=== PATIENT | male | born 1965 | race African-American/Black ===

== ENCOUNTER 2019-11-08 09:34 | Outpatient (CLI) | payer OTHER, SELFPAY ==
[2019-11-08 10:20] LABS: Blood Urea Nitrogen 14 mg/dL (9-20); Calcium 9.5 mg/dL (8.4-10.2); Carbon Dioxide 26 mmol/L (22-30); Chloride 102 mmol/L (98-107); Estimated Glomerular Filt Rate > 60; Glucose 101 mg/dL (75-110); Magnesium 1.8 mg/dL (1.6-2.3); Potassium 4.1 mmol/L (3.4-5.0); Sodium 139 mmol/L (137-145)
== END 2019-11-08 09:35 | disposition home or self-care (01) ==
LOC: ANHLAB 09:37
PROVIDERS: Visit Provider Nurse Practitioner Adult Health
DX: I73.9 Peripheral vascular disease, unspecified (principal); E87.6 Hypokalemia; M79.606 Pain in leg, unspecified
CPT/HCPCS: 36415; 80048; 83735

== ENCOUNTER 2019-11-11 18:22 | Emergency (ER) | payer OTHER, SELFPAY ==
--- NOTE | ~2019-11-11 | CT_ITS ---
EXAMINATION: CTA brain DATE: 11/11/2019 21:25 INDICATION: Left-sided headache. TECHNIQUE: Computed tomographic angiography (CTA) of the head was performed without and with 100 mL O mnipaque-350 intravenous contrast. Volume-rendered and maximum intensity projection 3D reconstruction s of the intracranial arteries were created by the technologist on a separate workstation. Automated exposure control and iterative reconstruction technique were employed. The dose-length product was 1 091 mGy-cm. COMPARISON: None. FINDINGS: No acute intracranial hemorrhage, acute infarction or abnormal extra axial fluid collection. Ventricl es are normal and symmetric. No mass/mass effect. Mild mucosal thickening the bilateral ethmoid sinus es. The orbits and mastoid air cells are normal. Mild atherosclerotic calcifications at the bilateral carotid siphons without hemodynamically signific ant stenosis. There is no hemodynamically significant stenosis in the vertebral or basilar arteries. Vertebral arteries are codominant. There are no aneurysms, thrombosis or dissection identified. Both A1 and P1 segments are patent. Cerebral arterial arborization appears symmetric. IMPRESSION: 1. No acute intracranial process with unremarkable cerebral angiogram. Reviewed, dictated and finalized at location A. [employer]
[2019-11-11 18:23] VITALS: BP 122/74; PULSE 64; RESP 19; TEMP 36.3; O2SAT 99
--- NOTE | 2019-11-11 18:31 | ED.HA ---
HPI - Headache General Chief Complaint: Headache Stated Complaint: BEEN HAVING BAD MIGRAINES Time Seen by Provider: 11/11/19 18:29 Source: patient and RN notes reviewed Mode of arrival: other Limitations: no limitations History of Present Illness HPI Narrative: Pt is a 54 y/o male who presents to the ED with c/o an intermittent left temporal headache that began two weeks ago. Pt's spouse notes that Dr. Chery referred to the ED for further evaluation if his HECTOR persisted. Pt notes that his sx will last for 8 minutes and then he notes that he feels as if something is draining from his ear. Pt states that his last episode was an hour ago and he has had 7-8 episodes today. Pt denies any aggravating factors. Pt had a CT scan of his head on (11/09/19) at [place]. Pt denies nasal drainage, nasal congestion, visual changes, hearing changes, fever, and otalgia. Pt is taking ASA daily. MD elicited complaint: headache Pertinent past history: hypertension Onset (ago): week(s) (2) Location: left and temporal Quality & Timing: intermittent Exacerbating factors: none Associated symptoms: none Related Data Allergies Allergy/AdvReac Type Severity Reaction Status Date / Time No Known Allergies Allergy Verified 11/11/19 19:33 Review of Systems Review of Systems: All systems reviewed & are unremarkable except as noted in HPI and below Constitutional: Constitutional: Denies fever(s) Eyes: Eyes: Denies change in vision ENT: Denies otalgia, Denies nasal congestion, Denies nasal discharge and Denies other (hearing changes) Neurologic: Reports headache(s) (left temporal) [facility] Past Medical History Medical History Hypercholesterolemia Hypertension No significant past medical history Peripheral vascular disease Tobacco use Surgical History Surgical History (Updated 11/11/19 @ 18:56 by Sadaf Whitaker) No significant past surgical history Stented coronary artery Social History Social History Smoking packs per day: 0.5 Smoking cigarettes per day: 10.0 Years smoked: 10 Smoking pack-years: 5.00 Smoking status: Current every day smoker Tobacco type: cigarettes Alcohol intake: never Substance use: never Gender identity (if verbalized by the patient): Male Spiritual care concerns: No Exam Const: General: healthy appearing, no acute distress and well developed Nutritional Appearance: well nourished Orientation/consciousness: patient oriented x3 (alert) and Other orientation findings (Alert) Limitations: no limitations HENMT: Head: no temporal artery tenderness Ears: other (cerumen in ears) General nose exam: No nasal discharge present and no epistaxis Face and sinus: sinuses nontender Mouth: Yes lip normal, Yes tongue normal and Yes moist mucous membranes Throat: other (No exudate, no erythema) Eyes: Conjunctivae: conjunctivae normal Sclera: sclerae normal EOM: EOMs intact bilaterally Neck: Neck: full ROM, no lymphadenopathy and supple Thyroid: thyroid normal Resp: Effort & Inspection: normal respiratory effort Auscultation: clear to auscultation bilaterally, no rales, no rhonchi, no wheezes and other (breath sounds equal) Cardio: Rate: regular rate Rhythm: regular rhythm Heart sounds: no gallops and no murmurs Skin: General skin exam: normal color and no rashes or lesions noted Neuro: General: patient oriented x3 (alert), moves all extremities and no focal motor deficits Cranial nerves: Yes facial symmetry Speech: normal speech Motor exam (neuro): Motor abnormalities not present Extrem: General: normal to inspection, full ROM and no pedal edema Psych: Affect: normal affect Course Consultations Consultation #1: Discussed case with Dr. Chery to confirm normal outpatient imaging. d/w pt, w/u reassuring, would consider tylenol regularly and possibly neuroi referral if persistently bothersome Date: 11/11/19 Time: 20:29 Vital Signs
[2019-11-11 20:28] LABS: Erythrocyte Sedimentation Rate 25 mm/hr (0-20)
[2019-11-11 20:30] LABS: CRP 0.9 mg/dL (<1.0)
[2019-11-11 21:24] LABS: Blood Urea Nitrogen 15 mg/dL (8-26); Estimated Glomerular Filt Rate > 60
[2019-11-11 22:26] VITALS: BP 132/77; PULSE 72; RESP 18; O2SAT 99
== END 2019-11-11 22:27 | disposition home or self-care (01) ==
PROVIDERS: Emergency Provider Emergency Medicine
DX: E78.00 Pure hypercholesterolemia, unspecified (principal); I10 Essential (primary) hypertension; I73.9 Peripheral vascular disease, unspecified; F17.210 Nicotine dependence, cigarettes, uncomplicated
CPT/HCPCS: 36415; 70496; 85652; 86140; 99284; Q9967

== ENCOUNTER 2019-11-24 07:56 | Outpatient (CLI) | payer OTHER, SELFPAY ==
--- NOTE | ~2019-11-24 | US_ITS ---
EXAMINATION: US arterial ankle brachial ind DATE: 11/24/2019 09:16 INDICATION: Claudication TECHNIQUE: Segmental pressures and plethysmographic and Doppler waveforms of the brachial and lower e xtremity arteries were obtained. COMPARISON: None. FINDINGS: Right and left brachial artery pressures of 113 mm Hg and 126 mm Hg, respectively, are concordant (no rmal difference <= 30 mmHg). The right ankle-brachial index (MAGDA) is 0.48 (normal >= 0.9-1.0). The right great toe-brachial index (TBI) is 0.53 (normal >= 0.65). Arterial Doppler waveforms are biphasic. The left MAGDA is 0.59. The left TBI is 0.45. Arterial Doppler waveforms are biphasic. IMPRESSION: Depressed bilateral MAGDA of 0.48 on the right, 0.59 on the left Right and left TBI measurements of 0.53 and 0.45, respectively, both below normal range Reviewed, dictated and finalized at Location A. Reviewed, dictated and finalized at location B. HANGER IMPRESSION: Depressed bilateral MAGDA of 0.48 on the right, 0.59 on the left Right and left TBI measurements of 0.53 and 0.45, respectively, both below norm al range
== END 2019-11-24 07:57 | disposition home or self-care (01) ==
LOC: ANHIMG 07:58
PROVIDERS: PCP Internal Medicine; Visit Provider Internal Medicine Cardiovascular Disease
DX: I73.9 Peripheral vascular disease, unspecified (principal); R94.39 Abnormal result of other cardiovascular function study
CPT/HCPCS: 93922

== ENCOUNTER 2020-04-12 02:18 | Observation (INO) | payer OTHER, SELFPAY ==
[2020-04-12] VITALS (17 sets, daily range): BP systolic 94–133; BP diastolic 55–80; PULSE 60–77; RESP 12–20; TEMP 36.1–36.7; O2SAT 94–100; BMI 33.0
--- NOTE | 2020-04-12 | EST_ITS ---
Patient Info Name: Subhash Browning Age: 55 years : 1965 Gender: Male Ht: 67 in Wt: 210 lbs BSA: 2.16 m2 Exam Date: 04/12/2020 1:21 PM Exam Location: [facility] [place] [facility] Patient Status: Outpatient Admit Date: 04/12/2020 Staff Ordering Physician: Gilberto Oliveira MD Attending Provider: Mere Ritter PA-C Exercise Technologist: Malka Martin RDCS Nurse: Marietta Epstein ANP, ACNP-BC Exam Type: CA stress harper w NM Study Info Indications R07.89 - Other chest pain A regadenoson stress test was performed. Summary 1. Normal sinus rhythm - normal ECG. 2. No abnormal ST/T wave changes with exercise. 3. Myocardial perfusion imaging exam to be dictated by Radiology. 4. Clinically and electrocardiographically negative Lexiscan stress test. Protocol: Lexiscan Stress ECG Details Stage: REST Duration (min): 19 min : 28 sec HR (bpm): 70 SBP (mmHg): 100 DBP (mmHg): 70 Stage: REST Duration (min): 20 min : 29 sec HR (bpm): 67 SBP (mmHg): 100 DBP (mmHg): 70 Stage: STAGE 1 Duration (min): 1 min : 0 sec HR (bpm): 94 SBP (mmHg): 115 DBP (mmHg): 57 Stage: RECOVERY Duration (min): 1 min : 0 sec HR (bpm): 95 SBP (mmHg): 105 DBP (mmHg): 55 Stage: RECOVERY Duration (min): 2 min : 0 sec HR (bpm): 93 SBP (mmHg): 105 DBP (mmHg): 55 Stage: RECOVERY Duration (min): 3 min : 0 sec HR (bpm): 91 SBP (mmHg): 105 DBP (mmHg): 53 Stage: RECOVERY Duration (min): 3 min : 14 sec HR (bpm): 90 SBP (mmHg): 105 DBP (mmHg): 53 Rest HR: 67 bpm Peak HR: 99 bpm Rest Sys BP: 100 mmHg Peak Sys BP: 115 mmHg Max Pred HR: 167 bpm % Max Pred HR: 59 % Target HR: 142 bpm Max RPP: 11,385 bpm*mmHg BP Response: Normal blood pressure response Termination Reason: Completed protocol Cardiac Symptoms: None Total Time: 1 min : 0 sec Rest Benjamin BP: 70 mmHg Peak Benjamin BP: 57 mmHg Total Dose: 0.4 mg Resting ECG Normal sinus rhythm - normal ECG. Stress ECG No abnormal ST/T wave changes with exercise. Arrhythmias None. Report Signatures
--- NOTE | ~2020-04-12 | NM_ITS ---
EXAMINATION: NM harper stress w perfusion DATE: 04/12/2020 14:38 INDICATION: Chest pain. TECHNIQUE: Rest images were obtained following intravenous administration of 8.4 mCi Tc99m tetrofosmi n (Myoview). The patient was infused intravenously with Lexiscan (regadenoson). Then, 28.3 mCi Tc99m tetrofosmin (Myoview) was administered intravenously, and stress images were obtained. Data was recon structed into short axis and horizontal and vertical long axis SPECT images. Gated SPECT images were also obtained. COMPARISON: None. FINDINGS: There is no definite reversible or fixed perfusion abnormality to suggest ischemia or infar ction. There is no segmental wall motion abnormality. Left ventricular ejection fraction measures > 70%. IMPRESSION: 1. No definite ischemia or infarct. 2. Normal left ventricular ejection fraction measuring >70%. Reviewed, dictated and finalized at location A.
--- NOTE | ~2020-04-12 | CT_ITS ---
EXAMINATION: CT brain wo con INDICATION: Dizziness COMPARISON: 11/11/2019 TECHNIQUE: Standard unenhanced head CT. The dose-length product (DLP) was 605.33 mGy-cm. The mA was a djusted according to patient size. Iterative reconstruction technique was employed. FINDINGS: There is no intracranial hemorrhage, acute infarction, or abnormal mass lesion. The ventric les are normal. There is no abnormal mass effect or midline shift. The rodrigues-white matter differentiat ion is normal. The basal cisterns are patent. The orbits are normal. There is mild mucosal thickening of the paranasal sinuses. IMPRESSION: 1. No acute intracranial abnormality. Reviewed, dictated and finalized at location A.
--- NOTE | ~2020-04-12 | XR_ITS ---
EXAMINATION: XR chest 1V portable DATE: 04/12/2020 03:16 INDICATION: Chest pain TECHNIQUE: frontal view of the chest was obtained. COMPARISON: Chest radiograph dated 10/21/2019 FINDINGS: The lungs remain clear with no focal airspace opacities, pulmonary edema, pleural effusion or pneumot horax. The cardiomediastinal silhouette is normal. Mild thoracolumbar levocurvature. IMPRESSION: 1. No acute cardiopulmonary disease. Reviewed, dictated and finalized at location A.
--- NOTE | 2020-04-12 02:44 | ECG_ITS ---
Measurements Intervals [place] Rate: 66 P: 52 [place]: 152 QRS: 33 QRSD: 93 T: 29 QT: 377 QTc: 395 Interpretive Statements SINUS RHYTHM ST ELEVATION IN DIFFUSE LEADS, PROBABLY EARLY REPOLARIZATION BORDERLINE ECG Electronically Signed On 04-12-2020 7:25:05 CDT by He Beltran D.O.
[2020-04-12 02:57] LABS: Basophils Percent Auto 0.4 % (0.2-1.2); Eosinophils Absolute Auto 0.4 K/mm3 (0-0.3); Hematocrit 42.9 % (42.0-52.0); Hemoglobin 14.7 g/dL (14.0-18.0); Immature Granulocyte Absolute 0.02 K/mm3 (0.00-0.031); Immature Granulocyte Percent A 0.3 % (0-0.5); Lymphocytes Absolute Auto 4.12 K/mm3 (0.9-3.2); Lymphocytes Percent Auto 52.7 % (18.3-44.2); Mean Corpuscular HGB Conc 34.3 g/dl (32-36); Mean Corpuscular Hemoglobin 31.6 pg (26-34); Mean Corpuscular Volume 92.3 fl (80-100); Mean Platelet Volume 9.6 fl (7.4-10.4); Monocytes Absolute Auto 0.8 K/mm3 (0.1-0.6); Neutrophils Absolute Auto 2.5 K/mm3 (1.3-6.7); Neutrophils Percent Auto 31.6 % (45.5-73.1); Platelet Count Result 274 k/mm3 (150-375); Red Blood Count 4.65 M/mm3 (4.6-6.20); Red Cell Distribution Width 14.1 % (11.5-14.5); White Blood Count 7.8 K/mm3 (4.5-10.0)
--- NOTE | 2020-04-12 02:59 | ED.GENADULT ---
HPI - General Adult General Chief complaint: Dizziness Stated complaint: dizzy/weak Time Seen by Provider: 04/12/20 02:28 Source: RN notes reviewed History of Present Illness HPI narrative: Patient presents emergency department from home for chest pain. Patient states symptoms began 3 days ago. States has been having pain in his left chest does not radiate. Is been associated with nausea and dizziness. Patient states that the left chest pain is intermittent denies any current pain. He denies any fevers or chills shortness of breath abdominal pain or any other symptoms. Patient has a history of PR with stent placement by Dr. De Leon in October 2019. States he has been taking all of his medications as prescribed Related Data Allergies Allergy/AdvReac Type Severity Reaction Status Date / Time No Known Allergies Allergy Verified 04/12/20 02:42 Review of Systems Review of Systems: Narrative: Gen.: Denies fevers or chills Eyes: Denies eye pain or visual change ENT: Denies congestion Respiratory: Denies shortness of breath or cough CV: See HPI GI: Denies abdominal pain emesis or diarrhea. Reports nausea denies burning, urgency, frequency or hematuria Musculoskeletal: Denies back pain or muscle pain Neuro: Denies numbness, tingling, weakness or focal weakness reports dizziness Skin: Denies rash Except as documented, all other systems reviewed and negative [facility] Past Medical History Medical History Hypercholesterolemia Hypertension No significant past medical history Peripheral vascular disease Tobacco use Surgical History Surgical History (Updated 11/11/19 @ 18:56 by Sadaf Whitaker) No significant past surgical history Stented coronary artery Social History Social History Smoking packs per day: 0.5 Smoking cigarettes per day: 10.0 Years smoked: 10 Smoking pack-years: 5.00 Smoking status: Current every day smoker Tobacco type: cigarettes Alcohol intake: never Substance use: never Gender identity (if verbalized by the patient): Male Spiritual care concerns: No Exam Narrative: Exam Narrative: APPEARANCE: No acute distress, nontoxic, resting in bed EYES: EOMI HEENT: Normocephalic, atraumatic, OMM RESPIRATORY: No respiratory distress Clear to auscultation bilaterally with no rhonchi wheezing or rales. CARDIOVASCULAR: Regular rate and rhythm without murmurs rubs or gallops. ABDOMINAL: Soft, nontender, nondistended, no rebound or guarding MUSCULOSKELETAl: Moves all extremities. No clubbing, cyanosis or edema. NEURO: Awake and alert. Following commands, speech normal, no focal deficits SKIN:: Warm, dry. No rashes lesions or abrasions PSYCHIATRIC: Normal affect/mood, Course Course Emergency Course: Following initial EKG I called and discussed with Dr. Michaels quality control representative. EKGs were sent to him for evaluation. We did review the patient's EKGs with several changes in V2 and V3 with no reciprocal changes. At this time he does not believe that this is an acute STEMI after review of the EKGs. He recommends medical management with work-up and if no contraindications starting the patient on a heparin drip as well as giving the patient his a.m. Brilinta and aspirin [address] Cheung presentation work-up reviewed with admission at this time Discussed with patient and family results of workup and diagnosis. Discussed need for admission. Patient and family understand and agree to current treatment plan. Patient denies any chest pain at this time Vital Signs Vital signs: Vital Signs Temperature 97.0 F L 04/12/20 02:31 Pulse Rate 75 04/12/20 02:31 Respiratory Rate 18 04/12/20 02:31 Blood Pressure 113/80 04/12/20 02:31 Pulse Oximetry 100 04/12/20 02:31 Temperature 97.0 F L 04/12/20 02:31 Pulse Rate 75 04/12/20 02:31 Respiratory Rate 18 04/12/20 02:31 Blood Pressure 113/80 04/12/20 02:31 Pulse Oximetry 100
[2020-04-12] MEDS: ASPIRIN 81 MG CHEWABLE TABLET PO (03:04)
[2020-04-12 03:08] LABS: Blood Urea Nitrogen 14 mg/dL (9-20); Calcium 8.9 mg/dL (8.4-10.2); Carbon Dioxide 23 mmol/L (22-30); Chloride 105 mmol/L (98-107); Estimated CRCL calculation 102 ml/min; Estimated Glomerular Filt Rate > 60; Glucose 111 mg/dL (75-110); Potassium 3.7 mmol/L (3.4-5.0); Sodium 136 mmol/L (137-145)
[2020-04-12 03:09] LABS: Prothrombin Time 12.9 Seconds (11.1-14.7)
[2020-04-12 03:13] LABS: Partial Thromboplastin Time 22.4 SECONDS (22.3-36.8)
[2020-04-12 03:20] LABS: Troponin I < 0.012 ng/mL (0.000-0.034)
[2020-04-12] MEDS: TICAGRELOR 90 MG TABLET PO (05:11)
[2020-04-12] MEDS: HEPARIN SODIUM 5,000 UNITS/ML VIAL 4000 UNITS IV PUSH (05:31)
--- NOTE | 2020-04-12 05:53 | ADMGEN ---
This patient, Subhash Browning, was admitted to IMU Room 210-01. Patient/family oriented to hospital policies and general routines including ID bracelet, bed and alarms, visiting hours, pain management, procedures, bathroom and other care routines, personal items, smoking policy, room service/diet, and visiting hours. Valuables list has been completed. Information on how to activate the Rapid Response Team has been discussed. Patient/Family are encouraged to report perceived risks to care and to ask questions if they do not understand what they are told or what they should do.
[2020-04-12] MEDS: HEPARIN SOD/D5W 100 UNITS/ML 25,000 UNITS/250 ML BAG 9 UNITS IV CONT (06:25)
[2020-04-12 06:47] LABS: Troponin I < 0.012 ng/mL (0.000-0.034)
--- NOTE | 2020-04-12 09:06 | PM.CNCAR ---
Assessment and Plan Additional Plan 55-year-old patient with known history of coronary artery disease percutaneous stenting of the RCA in the setting of acute inferior wall infarction in October of this year. Clinically doing well since then. He now has a 5-6 day history of intermittent nonexertional mild chest pain that his rates concerned. So far there appears to be no evidence of acute coronary syndrome by ECG and biomarkers. He clearly has physical exam evidence of significant peripheral vascular disease and had significant difficulty in the catheterization lab in October conducting his cardiac procedure from the femoral artery. At this point I am going to recommend an ischemia evaluation in the form of a Lexiscan nuclear stress test since his symptoms are atypical assuming that his 3rd troponin level comes back negative. That will be done later this morning. If it is negative he can be dismissed for scheduled follow-up in the office with Dr. De Leon . Gilberto Oliveira MD [facility] History of Present Illness History of Present Illness Consult date/time: 04/12/20 09:06 Consult reason: chest pain Reason For Visit: chest pain, dizziness, normal EKG Narrative: This is a 55-year-old gentleman I am seeing this morning at the request of the hospitalist after he was admitted in the middle of the night after being seen in the emergency room. The patient has been experiencing intermittent episodes of chest pain since Wednesday evening of this week, about 5 days ago. He describes a it very mild dull low substernal to epigastric pain that happens off and on in an unpredictable fashion. He states the symptom is not related to physical activity meals body position or anything else that he can identify. It has no associated shortness of breath diaphoresis or nausea. He came to the emergency room last evening apparently because the symptoms have been continuing and of recent concern on his part because he is known to have coronary artery disease. The patient was found to have coronary disease in October this year when he presented to this hospital with an acute inferior ST-elevation [place]. He was brought to the [facility] emerg[facility] by Dr. De Leon where he was found to have no significant left coronary disease he had subtotal occlusion of the mid RCA which was treated percutaneously with good success he received a 3.25 x 23 mm drug-eluting stent with a good anatomical result and good FRANCHESCA 3 flow of the vessel the procedure was complicated by the fact that he had significant peripheral vascular disease making arterial access from the right femoral artery difficult and challenging. [place] wires and long sheaths had to be used to perform the angiogram. He does have a history of pretty typical symptoms of intermittent claudication for several years which have been stable and have not worsened since his coronary event as described above. 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 Patient's ECG did not show any evidence of acute coronary injury. He had some precordial ST segment elevation or J-point elevation with no reciprocal changes. His troponin levels are being sample of course the 1st 2 levels are normal. The 3rd sample is pending at the time of this dictation. Review of Systems Constitutional: Constitutional: Reports no additional constitutional complaints Eyes: Eyes: Reports no additional eye complaints ENT: Reports system reviewed and no additional complaints, except as documented Cardiovascular: Cardiovascular: Reports as per HPI Respiratory: Respiratory: Reports no additional respiratory complaints Gastrointestinal: Gastrointestinal: Reports no additional gastrointestinal complaints Musculoskeletal: Musculoskeletal: Reports no additional musculoskeletal complaints Neurologic: Reports system reviewed and no additional complaints, except
[2020-04-12 09:11] LABS: Troponin I < 0.012 ng/mL (0.000-0.034)
[2020-04-12] MEDS: ONDANSETRON INJ 4 MG/2 ML VIAL (12:16)
[2020-04-12] MEDS: MECLIZINE HCL 12.5 MG TABLET PO (14:37)
--- NOTE | 2020-04-12 15:11 | PM.SD ---
Same Day Admit/Disch: HPI History of Present Illness Chief complaint: chest pain, dizziness, normal EKG Narrative: Subhash Browning is a 55 year old male with a history of coronary artery disease status post PCI October 2019, who presented to the emergency room with complaints of dizziness and chest pain. The patient states he has been having chest pain that has been intermittent for 1 week. He states it feels like a soreness and tightness to the left side of his chest. He states it is non radiating and is not worse with taking a deep breath or pressing on the area. He states his chest pain has occurred while he is up walking around doing things and then he has to stop and sit down to relax before goes away. He states his chest pain last up to 45 minutes. He denies any shortness of breath associated with his chest pain but he does report nausea and diaphoresis being associated with it. He also reports intermittent dizziness that began 5 days ago. He states it is worse whenever he turns his head, stands, and sometimes it just comes on randomly. He has associated nausea, weakness with the dizziness. He has had a go home from work a few times secondary to his dizziness. He describes his dizziness as feeling off balance, and room spinning. He denies any feelings that he is going to pass out and denies any syncopal episodes. He denies blurry vision, double vision, headaches, cough, fever, chills, vomiting, abdominal pain, diarrhea, constipation, leg swelling, calf pain, urinary symptoms, or any other symptoms at this time. Initial vitals showed temperature of 97?, blood pressure 113/80, heart rate 75, respiratory rate 18, oxygen saturation 100% on room air. Initial labs showed normal CBC with differential, normal coag panel, sodium of 136, negative troponin x3. CT brain for his dizziness showed no acute intracranial abnormality. Chest x-ray showed no acute cardiopulmonary findings. To the emergency department the believed that he had some ST elevation to V2 and V3 and he called Dr. Michaels registered diet technician who evaluated the EKG. They decided to start the patient on heparin drip IV at that time and admitted into the hospital for further cardiac workup. [facility] Past Medical History Medical History Coronary artery disease Hypercholesterolemia Hypertension Peripheral vascular disease Tobacco use Surgical History Surgical History Stented coronary artery Family History Family History Father Hypertension Family history of cardiovascular disease Social History Social History Years smoked: 36 Smoking status: Former smoker Tobacco type: cigarettes Alcohol intake: current Alcohol use details: He drinks 1 beer daily and socially drinks occasionally Substance use: never Substance use type: does not use Living arrangements: with family Occupation/Education: occupation 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 Appears comfortable. In no acute distress. Skin: No jaundice or cyanosis. Good skin turgor. Neck: Full range of motion. Supple. Respiratory: Lungs are clear to auscultation bilaterally. No wheezing, rales or rhonch
== END 2020-04-12 16:15 | disposition home or self-care (01) ==
LOC: ANHED 05:12 → ANHIMU 05:18
PROVIDERS: Admitting Provider Internal Medicine; Emergency Provider Emergency Medicine; PCP Internal Medicine; Visit Provider Family Medicine
DX: R07.9 Chest pain, unspecified (principal); I25.2 Old myocardial infarction; I73.9 Peripheral vascular disease, unspecified; E78.00 Pure hypercholesterolemia, unspecified; F17.210 Nicotine dependence, cigarettes, uncomplicated; I10 Essential (primary) hypertension; I25.10 Atherosclerotic heart disease of native coronary artery without angina pectoris; R94.31 Abnormal electrocardiogram [ECG] [EKG]; R42 Dizziness and giddiness; Z95.5 Presence of coronary angioplasty implant and graft
CPT/HCPCS: 36415; 70450; 71045; 78452; 80048; 84484; 85025; 85610; 85730; 93005; 93017; 99285; A9270; A9502; G0378; J1644; J2405; J2785

== ENCOUNTER 2020-04-16 17:13 | Observation (INO) | payer OTHER, SELFPAY ==
--- NOTE | ~2020-04-16 | XR_ITS ---
EXAMINATION: XR chest 2V DATE: 04/16/2020 18:00 INDICATION: Left chest pain. Dizziness. TECHNIQUE: Frontal and lateral views of the chest were obtained. COMPARISON: Chest single view 04/12/2020 FINDINGS: There is mild atelectasis at left lung base. No pleural effusion or pneumothorax. The heart size is normal. IMPRESSION: 1. Mild atelectasis at left lung base. Reviewed, dictated and finalized at location A.
[2020-04-16 17:15] VITALS: BP 107/64; PULSE 78; RESP 19; TEMP 36.6; O2SAT 99
--- NOTE | 2020-04-16 17:22 | ECG_ITS ---
Measurements Intervals [place] Rate: 79 P: 51 MD: 144 QRS: 13 QRSD: 88 T: 27 QT: 341 QTc: 391 Interpretive Statements SINUS RHYTHM ST ELEVATION IN ANTERIOR LEADS- PROBABLY EARLY REPOLARIZATION BASELINE ARTIFACT- I, II, AVR, V1 BORDERLINE ECG Electronically Signed On 04-16-2020 20:52:38 CDT by He Beltran D.O.
[2020-04-16 17:33] LABS: Basophils Percent Auto 0.3 % (0.2-1.2); Eosinophils Absolute Auto 0.3 K/mm3 (0-0.3); Eosinophils Percent Auto 4.6 % (0-4.4); Hemoglobin 14.3 g/dL (14.0-18.0); Immature Granulocyte Absolute 0.02 K/mm3 (0.00-0.031); Immature Granulocyte Percent A 0.3 % (0-0.5); Lymphocytes Percent Auto 35.8 % (18.3-44.2); Mean Corpuscular Hemoglobin 31.8 pg (26-34); Mean Corpuscular Volume 93.5 fl (80-100); Mean Platelet Volume 9.6 fl (7.4-10.4); Monocytes Absolute Auto 0.5 K/mm3 (0.1-0.6); Monocytes Percent Auto 8.9 % (2.6-8.5); Neutrophils Absolute Auto 2.9 K/mm3 (1.3-6.7); Neutrophils Percent Auto 50.1 % (45.5-73.1); Platelet Count Result 285 k/mm3 (150-375); Red Blood Count 4.49 M/mm3 (4.6-6.20); Red Cell Distribution Width 14.1 % (11.5-14.5); White Blood Count 5.9 K/mm3 (4.5-10.0)
[2020-04-16 17:42] LABS: Prothrombin Time 12.7 Seconds (11.1-14.7)
[2020-04-16 17:43] LABS: Partial Thromboplastin Time 27.6 SECONDS (22.3-36.8)
[2020-04-16 18:22] LABS: Blood Urea Nitrogen 9 mg/dL (9-20); Calcium 8.9 mg/dL (8.4-10.2); Carbon Dioxide 27 mmol/L (22-30); Chloride 103 mmol/L (98-107); Estimated CRCL calculation 92 ml/min; Estimated Glomerular Filt Rate > 60; Glucose 96 mg/dL (75-110); Potassium 3.8 mmol/L (3.4-5.0); Sodium 137 mmol/L (137-145)
[2020-04-16 18:34] LABS: Troponin I < 0.012 ng/mL (0.000-0.034)
--- NOTE | 2020-04-16 19:33 | ED.CHESTPAIN ---
HPI - Chest Pain General Chief Complaint: Chest Pain Stated Complaint: CP Time Seen by Provider: 04/16/20 17:22 History of Present Illness HPI narrative: Patient is 55 years old -[place] male, history of [place] 6 months ago, 1 coronary stents, diabetes, hypertension, hyperlipidemia, positive family history of coronary disease presents with left chest pain started while working at the [employer], lasted for minutes, resolved after taking nitroglycerin sublingual, and receiving nitroglycerin spray in the ambulance. Currently patient is pain-free. Patient believes that he was overheated while working at the [employer]. Patient denies any shortness of breath or radiation of pain. Pain is sharp Related Data Allergies Allergy/AdvReac Type Severity Reaction Status Date / Time No Known Allergies Allergy Verified 04/16/20 17:23 Review of Systems Review of Systems: Narrative: CONSTITUTIONAL: Denies fever, chills, or sweats. EYES: Denies visual changes, redness, or discharge. ENT: Denies rhinorrhea, congestion, sore throat, or otalgia. CARDIOVASCULAR: Denies chest pain, palpitations, or edema. RESPIRATORY: Denies cough or dyspnea. GASTROINTESTINAL: Denies abdominal pain, nausea, vomiting, or diarrhea. GENITOURINARY: Denies dysuria or hematuria. SKIN: Denies rash or itching. MUSCULOSKELETAL: Denies back pain, joint pain, or myalgia. NEUROLOGIC: Denies headache, numbness, or weakness. PSYCHIATRIC: Denies anxiety or depression. 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 Oliveira Date: 04/16/20 Time: 20:59 Vital Signs Vital signs: Vital Signs Temperature 36.6 C 04/16/20 17:15 Pulse Rate 78 04/16/20 17:15 Respiratory Rate 19 04/16/20 17:15 Blood Pressure 107/64 04/16/20 17:15 Pulse Oximetry 99 04/16/20 17:15 Temperature 36.8 C 04/16/20 19:48 Pulse Rate 95 04/16/20 19:48 Respiratory Rate 16 04/16/20 19:48 Blood Pressure 95/70 L 04/16/20 19:48 Pulse Oximetry 100 04/16/20 19:48 MDM - Chest Pain MDM Narrative Medical decision making narrative: Patient was hospitalized on April 12 and got discharged on the for similar symptoms. He is back again with the same symptoms. Patient re
[2020-04-16 19:48] VITALS: BP 95/70; PULSE 95; RESP 16; TEMP 36.8; O2SAT 100
[2020-04-16] MEDS: ENOXAPARIN 100 MG/ML SYRINGE SUB-Q (21:13)
[2020-04-16 21:17] LABS: Troponin I < 0.012 ng/mL (0.000-0.034)
[2020-04-16 21:53] VITALS: BP 104/62; PULSE 70; RESP 16; TEMP 36.6; O2SAT 100
[2020-04-16 22:00] VITALS: PULSE 87
[2020-04-16 22:18] VITALS: BMI 32.6
--- NOTE | 2020-04-16 22:26 | ADMGEN ---
This patient, Subhash Browning, was admitted to IMU Room 201-01. Patient/family oriented to hospital policies and general routines including ID bracelet, bed and alarms, visiting hours, pain management, procedures, bathroom and other care routines, personal items, smoking policy, room service/diet, and visiting hours. Valuables list has been completed. Information on how to activate the Rapid Response Team has been discussed. Patient/Family are encouraged to report perceived risks to care and to ask questions if they do not understand what they are told or what they should do. 04/14/2020 2019
[2020-04-16 22:28] VITALS: BP 121/93; PULSE 80; RESP 18; TEMP 35.8; O2SAT 99
[2020-04-16 23:21] VITALS: BP 123/71; PULSE 81; RESP 20; TEMP 36.7; O2SAT 100
[2020-04-16 23:45] LABS: Troponin I < 0.012 ng/mL (0.000-0.034)
[2020-04-17] VITALS: PULSE 88
[2020-04-17 02:00] VITALS: PULSE 71
[2020-04-17 04:00] VITALS: BP 101/49; PULSE 71; PULSE 72; RESP 18; TEMP 37.2; O2SAT 98
[2020-04-17 06:00] VITALS: PULSE 72
[2020-04-17 08:00] VITALS: BP 106/56; PULSE 67; PULSE 77; RESP 18; TEMP 36.8; O2SAT 99
[2020-04-17] MEDS: ASPIRIN 81 MG ENTERIC TABLET PO (08:29)
[2020-04-17] MEDS: lisinopriL 10 MG TABLET PO (08:29)
[2020-04-17] MEDS: TICAGRELOR 90 MG TABLET PO (08:30)
[2020-04-17 10:00] VITALS: PULSE 68
--- NOTE | 2020-04-17 10:05 | PM.CNCAR ---
Assessment and Plan Additional Plan 55-year-old gentleman with known coronary disease successful PCI of proximal right coronary artery in the setting of acute inferior ST-elevation NM 6 months ago. He is on appropriate medication including aspirin and Brilinta. He is compliant with his medication. He did not have any left coronary disease at the time of his angiography. His symptoms are atypical, his biomarkers and ECGs are unremarkable and furthermore he had a negative nuclear stress test just a few days ago. At this point I do not believe we need to return Mr. garcia to the catheterization laboratory technician for angiography and he agrees with that recommendation. I will allow him to go home follow-up is scheduled with my partner Dr. De Leon on Wednesday of next week Gilberto Oliveira MD [facility] History of Present Illness History of Present Illness Consult date/time: Date of service: 04/17/20 10:05 Consult reason: chest pain Reason For Visit: Chest pain Narrative: This is a very pleasant 55-year-old man with a history of coronary artery disease who entered the hospital after being seen in the emergency room last evening with an episode of chest pain that occurred at work. 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 Last evening he started to experience some sharp jabbing type left precordial left lateral chest pain that created concern on his part. He has a known history of coronary artery disease and has more concerned when he symptoms which of course is understandable. The patient took a nitroglycerin tablet at work he states that over the following 20-30 minutes the discomfort subsided it was largely subsided by the time he got to the emergency room here to be evaluated. Upon being arrived here he was ECG was found to be normal. His biomarkers were normal and he feels comfortable this morning. I saw this patient just a few days ago on 04/12/2020. He was hospitalized at that time with similar symptoms. He had a Lexiscan nuclear stress test done which was a normal exam and he was subsequently allowed to be discharged. He has a history of coronary artery disease dating back to October of this year when he presented to this hospital with an acute inferior ST-elevation NM. He was taken to the catheterization laboratory technician emergently by Dr. De Leon where he had total occlusion of his proximal RCA which was treated successfully with a drug-eluting stent with a good anatomical result and no complications. He had no angiographic left coronary artery disease. He has done well since then. He is known to have significant peripheral vascular disease with distal disease of the aorta and a vascular access from the femoral approach in October was quite challenging according to the chart. The rest of the details of this man's chart are in my prior note from several days ago and will not be reiterated here. Once again his biomarkers are negative he has now had at least 7 or 8 sets of negative troponins in the last several days. Review of Systems Constitutional: Constitutional: Reports no additional constitutional complaints Eyes: Eyes: Reports no additional eye complaints ENT: Reports system reviewed and no additional complaints, except as documented Cardiovascular: Cardiovascular: Reports no additional cardiovascular complaints Respiratory: Respiratory: Reports no additional respiratory complaints Gastrointestinal: Gastrointestinal: Reports no additional gastrointestinal complaints Genitourinary: Genitourinary: Reports no additional male genitourinary complaints Musculoskeletal: Musculoskeletal: Reports no additional musculoskeletal complaints Integumentary/Breasts: Skin/Breast: Reports system reviewed and no additional complaints, except as docu Neurologic: Reports system reviewed and no additional complaints, except as documented Psychiatric: Psychiatric: Reports no additional psychiatric complaints Endocrine:
--- NOTE | 2020-04-17 10:49 | PM.SD ---
Same Day Admit/Disch: HPI History of Present Illness Chief complaint: Chest pain Narrative: Subhash Browning is a 55 year old male with history of coronary artery disease status post PCI October 2019, HTN, and PVD who presented to the emergency room on 04/16 with complaints of left sided chest pain. 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 He had some dizziness and nausea which he thought may be due to the elevated temperature of the warehouse. He took a nitroglycerin and his pain subsided in 20-30 minutes by the time he reached the ER. He also stated his pain was slightly worse with deep inspirations, but this pain has subsided. He does not believe he has had injury to his chest while working. Patient otherwise has no other complaints and his symptoms have since resolved. Of note, he states he had similar chest pain in October when he had PCI, but ribbon tier . Denies f/c/s, recent illness, headaches, dizziness, lightheadedness, changes in v/h, palpitations, current sob, n/v/d/c, abd pain, changes in BMs, dysuria, hematuria, cloudy urine, calf pain/swelling. While in the ER, serial troponins were negative, ECG grossly unchanged from several days ago when he presented to the ED for similar complaints, and CXR grossly unremarkable. He had a recent negative Lexiscan stress test several days ago when he presented to the ED. Patient was admitted for further evaluation for chest pain; Cardiology consulted from the ED. 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[employer] Gender identity (if verbalized by the patient): Male Spiritual care concerns: No Same Day Admit/Disch: Med Pre-admit Medications Home Medications Medication Instructions Recorded Confirmed Type Brilinta 90 mg PO Q12HR #60 tablet 10/23/19 04/16/20 Rx aspirin 81 mg PO DAILY #30 tablet 10/23/19 04/16/20 Rx lisinopril 10 mg PO DAILY #30 tablet 10/23/19 04/16/20 Rx nitroglycerin 0.4 mg SUBLINGUAL DIRECTED PRN 10/23/19 04/16/20 Rx #25 tablet meclizine 12.5 mg PO QID #30 tablet 04/12/20 04/16/20 Rx Exam Narrative: Exam Narrative: Patient sitting upright in bed at time of visit; family is in room visiting at time of visit on speaker phone Const: General: cooperative, healthy appearing, comfortable, no acute distress, well developed, alert and awake Nutritional Appearance: well nourished and overweight Orientation/consciousness: patient oriented x3 HENMT: Head: normocephalic and atraumatic General nose exam: Normal nares present Face and sinus: face symmetric Mouth: Yes moist mucous membranes Throat: posterior oropharynx normal and uvula midline Eyes: General: appearance normal, both eyes and all related structures EOM: EOMs intact bilaterally Neck: Neck: trachea midline, supple and no JVD Resp: Effort & Inspection: normal respiratory effort Auscultation: crackles bilateral at the base Cardio: Rate: regular rate Rhythm: regular rhythm Heart sounds: no murmurs Other: reproducible chest pain/pressure to palpation on left side closer to sternum; similar to presenting chest pain. NTTP right chest GI: Inspection: non-distended and obesity GI Palp: No abdominal tenderness and Yes Soft to palpation Au
== END 2020-04-17 11:52 | disposition home or self-care (01) ==
LOC: ANHED 21:00 → ANHIMU 21:21
PROVIDERS: Emergency Medicine; Admitting Provider Internal Medicine; Emergency Provider Emergency Medicine; PCP Internal Medicine; Visit Provider Hospitalist
DX: R07.9 Chest pain, unspecified (principal); I10 Essential (primary) hypertension; E78.00 Pure hypercholesterolemia, unspecified; I25.10 Atherosclerotic heart disease of native coronary artery without angina pectoris; I25.2 Old myocardial infarction; E11.51 Type 2 diabetes mellitus with diabetic peripheral angiopathy without gangrene; Z95.5 Presence of coronary angioplasty implant and graft; Z79.01 Long term (current) use of anticoagulants; Z79.82 Long term (current) use of aspirin; Z72.0 Tobacco use
CPT/HCPCS: 36415; 71046; 80048; 84484; 85025; 85610; 85730; 93005; 96372; 99285; A9270; G0378; J1650

== ENCOUNTER 2020-04-23 01:25 | Outpatient (CLI) | payer OTHER, SELFPAY ==
[2020-04-23 19:24] LABS: SARS-CoV-2 RNA PCR Negative
== END 2020-04-23 01:26 | disposition home or self-care (01) ==
LOC: ANHCOVIDDT 01:26
PROVIDERS: PCP Internal Medicine; Visit Provider Internal Medicine Cardiovascular Disease
DX: Z01.812 Encounter for preprocedural laboratory examination (principal); Z11.59 Encounter for screening for other viral diseases
CPT/HCPCS: 87635; C9803; U0003

== ENCOUNTER 2020-04-25 05:28 | Day surgery (SDC) | payer OTHER, SELFPAY ==
[2020-04-24 12:18] VITALS: BMI 33.4
[2020-04-25] VITALS (10 sets, daily range): BP systolic 102–133; BP diastolic 54–78; PULSE 63–81; RESP 12–17; TEMP 36.3; O2SAT 97–100
[2020-04-25 07:29] LABS: Basophils Percent Auto 0.3 % (0.2-1.2); Eosinophils Absolute Auto 0.3 K/mm3 (0-0.3); Eosinophils Percent Auto 4.3 % (0-4.4); Hematocrit 44.4 % (42.0-52.0); Hemoglobin 15.1 g/dL (14.0-18.0); Immature Granulocyte Absolute 0.03 K/mm3 (0.00-0.031); Immature Granulocyte Percent A 0.4 % (0-0.5); Lymphocytes Absolute Auto 3.89 K/mm3 (0.9-3.2); Lymphocytes Percent Auto 50.5 % (18.3-44.2); Mean Corpuscular Hemoglobin 31.5 pg (26-34); Mean Corpuscular Volume 92.7 fl (80-100); Mean Platelet Volume 9.3 fl (7.4-10.4); Monocytes Absolute Auto 0.6 K/mm3 (0.1-0.6); Monocytes Percent Auto 8.3 % (2.6-8.5); Neutrophils Absolute Auto 2.8 K/mm3 (1.3-6.7); Neutrophils Percent Auto 36.2 % (45.5-73.1); Platelet Count Result 288 k/mm3 (150-375); Red Blood Count 4.79 M/mm3 (4.6-6.20); White Blood Count 7.7 K/mm3 (4.5-10.0)
[2020-04-25 07:39] LABS: INR 0.9; Prothrombin Time 11.6 Seconds (11.1-14.7)
[2020-04-25 07:48] LABS: Anion Gap 15.4 mmol/L (7-16); Blood Urea Nitrogen 15 mg/dL (9-20); Calcium 9.3 mg/dL (8.4-10.2); Carbon Dioxide 21 mmol/L (22-30); Chloride 104 mmol/L (98-107); Estimated CRCL calculation 92 ml/min; Estimated Glomerular Filt Rate > 60; Glucose 100 mg/dL (75-110); Potassium 4.4 mmol/L (3.4-5.0); Sodium 136 mmol/L (137-145)
--- NOTE | 2020-04-25 08:38 | WPDMODSED ---
Moderate Sedation Note-Pt Data Patient Data Allergies Allergy/AdvReac Type Severity Reaction Status Date / Time No Known Allergies Allergy Verified 04/24/20 12:15 Home Medications Medication Instructions Recorded Confirmed Type Brilinta 90 mg PO Q12HR #60 tablet 10/23/19 04/24/20 Rx aspirin 81 mg PO DAILY #30 tablet 10/23/19 04/24/20 Rx lisinopril 10 mg PO DAILY #30 tablet 10/23/19 04/24/20 Rx nitroglycerin 0.4 mg SUBLINGUAL DIRECTED PRN 10/23/19 04/24/20 Rx #25 tablet meclizine 12.5 mg PO QID #30 tablet 04/12/20 04/24/20 Rx atorvastatin 80 mg PO DAILY 04/24/20 04/24/20 History Current Medications: Active Medications Sodium Chloride (Normal Saline Iv) 500 mls @ 100 mls/hr IV CONT .Q5H BEBE Sedation/Anesthesia: No previous sedation/anesthesia problems (including family history). PMFSH Past Medical History Medical History Coronary artery disease Hypercholesterolemia Hypertension Peripheral vascular disease Tobacco use Surgical History Surgical History Stented coronary artery Family History Family History Father Hypertension Family history of cardiovascular disease Social History Social History Smoking packs per day: 1 Smoking cigarettes per day: 20.0 Years smoked: 36 Smoking pack-years: 36.00 Smoking status: Former smoker Tobacco type: cigarettes Second hand tobacco smoke exposure: Yes Smoking end date: 10/04/19 Alcohol intake: never Substance use: never Substance use type: does not use Living arrangements: with family 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[employer] Gender identity (if verbalized by the patient): Male Spiritual care concerns: No Mod Sed Physical Exam Physical Exam Pre Procedural Exam: Normal: Appearance, Eyes, Ears, Nose, Neck, Throat, Airway, Lungs, Heart Size, Heart Rate, Heart Rhythm, Neuro Exam, Abdomen, Liver, Kidneys, Spleen, Breasts, Genitalia, Extremities and Skin Hours since solid foods: 8 Hours since liquid intake: 8 Internal Medicine - PN: Obj Da Vital Signs Vital Signs: Vital Signs - 24 hr 04/25/20 07:47 Temperature 36.3 C L Pulse Rate 65 Respiratory Rate 16 Blood Pressure 133/78 Pulse Oximetry 100 Meds/Results Medications: Active Medications Generic Name Dose Route Start Last Admin Trade Name Dean PRN Reason Stop Dose Admin Sodium Chloride 500 mls @ 100 mls/hr 04/25/20 06:10 Normal Saline Iv IV CONT .Q5H BEBE Labs CBC & Chem 7: 04/25/20 07:14 04/25/20 07:14 Labs: Laboratory Results - last 24 hr 04/25/20 04/25/20 04/25/20 07:14 07:14 07:14 WBC 7.7 RBC 4.79 Hgb 15.1 Hct 44.4 MCV 92.7 MCH 31.5 MCHC 34.0 RDW 14.0 Plt Count 288 MPV 9.3 Immature Gran % (Auto) 0.4 Neut % (Auto) 36.2 L Lymph % (Auto) 50.5 H [place] % (Auto) 8.3 Eos % (Auto) 4.3 Baso % (Auto) 0.3 Lymph # (Auto) 3.89 H [place] # (Auto) 0.6 Eos # (Auto) 0.3 Baso # (Auto) 0.0 Abs Immat Gran (auto) 0.03 Absolute Neuts (auto) 2.8 Absolute Nucleated RBC 0.0 Nucleated RBC % 0.0 PT 11.6 INR 0.9 Sodium 136 L Potassium 4.4 Chloride 104 Carbon Dioxide 21 L Anion Gap 15.4 BUN 15 D Creatinine 0.90 Estim Creat Clear Calc 92 Estimated GFR > 60 Glucose 100 Calcium 9.3 ASA Classification/Sedation ASA Classification/Sedation ASA Class: I Emergent: No Risks: Risks, benefits and alternatives explained and patient/family accepted plan for sedation. Patient re-evaluated immediately prior to sedation.
--- NOTE | 2020-04-25 08:39 | WPDHPUPDATE1 ---
History and Physical Update Update Date/Time: 04/25/20 08:39 History and Physical has been reviewed, including an updated exam of the patient. There are NO changes in the patient's condition. Risks, benefits, and alternatives have been discussed and questions answered. Patient agrees to proceed with procedure.
--- NOTE | 2020-04-25 08:39 | WPDCARDPROC ---
Cardiac Cath Procedure Note Date of procedure:: 04/25/20 Performing physician:: Ernst De Leon MD Date of service 04/25/2020 Indication:: unstable angina Brief clinical history:: this is 55-year-old patient who presented with inferior STEMI previously and underwent stenting of the right coronary artery. However he was admitted recently to the hospital with chest pain and underwent stress testing that was negative for ischemia. He returned to the hospital again with chest pain. therefore due to continued chest pain and was brought into the research laboratory technician to define coronary. Procedure Procedure performed:: 1-Moderate sedation that started at and ended at using 13 mg of Versed and 250 mcg fentanyl. The registered nurse was Antolin Boateng. 2-Selective left and right coronary angiogram. 3-Left heart catheterization with measurement of LVEDP and measurement of gradient across aortic valve. 4- peripheral arterial angiogram of the distal aorta, bilateral common iliacs, bilateral external iliacs, bilateral common femoral arteries and the proximal portion of the right SFA. Sedation/Medication given:: Moderate sedation. Access site:: Right radial artery. Estimated blood loss:: 50cc Procedure note:: After informed consent patient was brought in to research laboratory technician with the was draped and prepped in usual manner. Moderate sedation was given and the right wrist was infiltrated using 1% lidocaine. Six [place] sheath was obtained using modified Seldinger technique.Cocktail of medications including 5 mg of verapamil, 200 mcg of nitroglycerin and 4000 IV heparin. Selective left coronary angiogram was done using AL-1 catheter with the tip of the catheter placed in the left main coronary artery. Selective right coronary angiogram was done using JR4 catheter with the tip of the catheter placed to the right coronary artery. After that 5 [place] pigtail catheter was advanced across the aortic valve into the left ventricle with measurement of LVEDP and measurement of gradient across aortic valve. I have to mention that the coronary angiogram was challenging and we ended using JL 3.5, tiger catheter, Miky catheter, LCB without success and the AL1 worked well. Then after that we tried to do IVUS catheter on left main and therefore we tried to engage the left main with a guide catheter and we used CLS 3.5, JL 3.5, AL1, AL 0.75, ALT 2, VL 3.5 and fortunately nothing worked to engage the left main. At that time I took a pigtail catheter and and then addanced it to the distal aorta and peripheral angiogram was done. Findings:: 1- left coronary artery is a large artery that divides into large LAD, Medium-sized circumflex artery large ramus. Left main tapers down and the distal portion about 50% to 60% stenosis. 2- left anterior descending artery is a large artery that runs to the apex. Diffuse 20-30% proximally then in the mid segment LAD gives rise to a medium-sized diagonal branch that has proximal% 3- leftcircumflex artery is a medium-sized artery free of disease. 4- ramus intermedius is a large artery with minimal irregularities however it gives a branch that has ostial 50%. 4- right coronary artery is large artery with a patent stent proximally. 5- LVEDP was 15 mmhg and no gradient across aortic valve. 6- opening arterial pressure was 100/70and closing pressure was 90/60. 7- Peripheral arterial angiogram shows totally occluded right common iliac artery from the distal lower and it reconstitutes via collaterals just before the bifurcation. the right external iliac, common femoral artery looks with minimal irregularities. The left common iliac artery has a distal 100% occlusion and reconstitutes via collaterals. the left external iliac, common femoral arteries looked unremarkable. Conclusion:: 1- Patent stent in RCA. 2- distal left main 50%, 90% medium-sized diagonal branch at the ostium. 3- Severe peripheral arterial angiogram with totally occluded right common iliac and left common kathi
--- NOTE | 2020-04-25 12:36 | SUR.PHASEII ---
2 mL air removed from TR band 13 mL of air remaining in TR band
--- NOTE | 2020-04-25 12:50 | SUR.PHASEII ---
3 mL of air removed from TR Band, 10 mL air remaining in TR Band
--- NOTE | 2020-04-25 13:25 | SUR.PHASEII ---
1300 3 mL of air removed from TR band, 7 mL remaining in TR Band
--- NOTE | 2020-04-25 13:25 | SUR.PHASEII ---
1315 3 mL of air removed from TR Band, 4 mL of air remaining.
--- NOTE | 2020-04-25 13:48 | SUR.PHASEII ---
1330 2 mL air removed from TR band, 2 mL remaining in TR band.
--- NOTE | 2020-04-25 13:48 | SUR.PHASEII ---
1345 2mL of air removed from TR band, all air removed, no bleeding or hematoma noted will continue to monitor.
--- NOTE | 2020-04-25 14:37 | SUR.PHASEII ---
1415 TR band removed and dressing in place, no signs of bleeding or hematoma, will continue to monitor.
== END 2020-04-25 15:39 | disposition home or self-care (01) ==
PROVIDERS: PCP Internal Medicine; Visit Provider Internal Medicine Cardiovascular Disease
PROC: 4A023N7 Measurement of Cardiac Sampling and Pressure, Left Heart, Percutaneous Approach (ICD-10-PCS; CPT 93452; principal; 2020-04-25 08:30)
PROC: (CPT 75625; 2020-04-25 08:30)
DX: I25.10 Atherosclerotic heart disease of native coronary artery without angina pectoris (principal); R07.9 Chest pain, unspecified; I25.2 Old myocardial infarction; I73.9 Peripheral vascular disease, unspecified; E78.00 Pure hypercholesterolemia, unspecified; Z95.5 Presence of coronary angioplasty implant and graft; Z79.01 Long term (current) use of anticoagulants; Z79.82 Long term (current) use of aspirin; Z87.891 Personal history of nicotine dependence
CPT/HCPCS: 36140; 36415; 75625; 80048; 85025; 85610; 92978; 93458; C1769; C1887; C1894; J0583; J1644; J2250; J3010; J7040

== ENCOUNTER 2021-03-07 18:43 | Emergency (ER) | payer OTHER, SELFPAY ==
[2021-03-07 19:00] VITALS: BP 150/90; PULSE 84; RESP 14; TEMP 36.6; O2SAT 99
--- NOTE | 2021-03-07 19:23 | ED.WOUNDLAC ---
HPI - Wound/Laceration General Chief Complaint: Wound/Laceration Stated Complaint: Laceration R hand Time Seen by Provider: 03/07/21 19:07 Source: patient Mode of arrival: ambulatory Limitations: no limitations History of Present Illness HPI narrative: Patient is a 56-year-old male who presents complaining of a laceration to right hand. He reports he was at work this evening opening a crate when knife slipped and cut hand. He denies other complaints at this time, reports tetanus is up to date. Patient denies taking otc medications prior to arrival. Patient is on anticoagulants. Bleeding controlled with dressing. Related Data Home Medications Medication Instructions Recorded Confirmed atorvastatin 80 mg PO DAILY 04/24/20 04/24/20 Allergies Allergy/AdvReac Type Severity Reaction Status Date / Time No Known Allergies Allergy Verified 04/24/20 12:15 Review of Systems Review of Systems: Narrative: CONSTITUTIONAL: Denies fever, chills, or sweats. EYES: Denies visual changes, redness, or discharge. ENT: Denies rhinorrhea, congestion, sore throat, or otalgia. CARDIOVASCULAR: Denies chest pain, palpitations, or edema. RESPIRATORY: Denies cough or dyspnea. GASTROINTESTINAL: Denies abdominal pain, nausea, vomiting, or diarrhea. GENITOURINARY: Denies dysuria or hematuria. SKIN: Lacerations to right hand MUSCULOSKELETAL: Denies back pain, joint pain, or myalgia. NEUROLOGIC: Denies headache, numbness, dizziness, or weakness. PSYCHIATRIC: Denies anxiety or depression. [facility] Past Medical History Medical History Coronary artery disease Hypercholesterolemia Hypertension Peripheral vascular disease Tobacco use Surgical History Surgical History Stented coronary artery Family History Family History Father Hypertension Family history of cardiovascular disease Social History Social History Smoking packs per day: 1 Smoking cigarettes per day: 20.0 Years smoked: 36 Smoking pack-years: 36.00 Smoking status: Former smoker Tobacco type: cigarettes Second hand tobacco smoke exposure: Yes Smoking end date: 10/04/19 Alcohol intake: never Substance use: never Substance use type: does not use 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 Please see nursing chart for further information. There is no relevant family history pertinent to the presenting complaint. Exam Narrative: Exam Narrative: GENERAL: Well-appearing, well-nourished, and in no acute distress. HEAD: Normocephalic, atraumatic. EYES: EOMI. No redness or drainage. Conjunctiva are normal. ENT: Mucous membranes pink and moist. CHEST: No respiratory distress. Clear to auscultation. HEART: Regular rate and rhythm. No murmur appreciated. Normal peripheral pulses. EXTREMITIES: Normal range of motion. No edema. SKIN: Avulsion to right index finger, laceration to dorsal 2nd and 4th knuckle, bleeding controlled NEURO: No focal deficits. Alert and oriented x3. Gait steady. PSYCH: Normal affect. No signs of depression or anxiety. Course Vital Signs Vital signs: Vital Signs Temperature 36.6 C 03/07/21 19:00 Pulse Rate 84 03/07/21 19:00 Respiratory Rate 14 03/07/21 19:00 Blood Pressure 150/90 H 03/07/21 19:00 Pulse Oximetry 99 03/07/21 19:00 Temperature 36.6 C 03/07/21 19:00 Pulse Rate 67 03/07/21 20:32 Respiratory Rate 16 03/07/21 20:32 Blood Pressure 114/88 03/07/21 20:32 Pulse Oximetry 99 03/07/21 20:32 Reviewed. Patient has been instructed to follow-up with his PCP regarding his bloo
--- NOTE | 2021-03-07 19:35 | PC.NURSE ---
called pharmacy, pharmacy stated floors are being waxed and cannot grab hemostat until they dry. notified.
[2021-03-07 20:32] VITALS: BP 114/88; PULSE 67; RESP 16; O2SAT 99
== END 2021-03-07 20:31 | disposition home or self-care (01) ==
PROVIDERS: Emergency Provider Nurse Practitioner; PCP Internal Medicine
DX: S61.411A Laceration without foreign body of right hand, initial encounter (principal); S61.200A Unspecified open wound of right index finger without damage to nail, initial encounter; I25.10 Atherosclerotic heart disease of native coronary artery without angina pectoris; E78.5 Hyperlipidemia, unspecified; I10 Essential (primary) hypertension; I73.9 Peripheral vascular disease, unspecified; Z95.5 Presence of coronary angioplasty implant and graft; Z87.891 Personal history of nicotine dependence; W26.0XXA Contact with knife, initial encounter
CPT/HCPCS: 12001; 99282

== ENCOUNTER 2024-04-25 05:49 | Emergency (ER) | payer OTHER, SELFPAY ==
--- NOTE | ~2024-04-25 | XR_ITS ---
EXAMINATION: XR chest 1V portable DATE: 04/25/2024 06:28 INDICATION: Chest pain with ST elevation myocardial infarction. TECHNIQUE: AP and lateral views of the chest were obtained. COMPARISON: Chest radiograph dated 04/16/2020 FINDINGS: The lungs remain clear with no focal airspace opacities, pulmonary edema, pleural effusion or pneumot horax. The cardiomediastinal silhouette is normal. Visualized bones and soft tissues are unremarkable . IMPRESSION: 1. No evident acute cardiopulmonary disease. Reviewed, dictated and finalized at location A.
--- NOTE | 2024-04-25 05:51 | ECG_ITS ---
Test Date: 2024-04-25 05:56:27 Measurements Intervals [place] Rate: 72 P: 6 CA: 158 QRS: 41 QRSD: 90 T: 24 QT: 350 QTc: 384 Interpretive Statements SINUS RHYTHM POSSIBLE RIGHT VENTRICULAR CONDUCTION DELAY ST ELEVATION IN DIFFUSE LEADS, PROBABLY EARLY REPOLARIZATION BASELINE ARTIFACT- I, II, III, AVR, AVL, AVF, V1, V4-V6 BORDERLINE ECG No previous ECG available for comparison Electronically Signed On 04-25-2024 07:17:25 CDT by He Beltran D.O.
[2024-04-25 05:52] VITALS: BP 149/76; PULSE 74; RESP 16; TEMP 36.6; O2SAT 99
[2024-04-25 06:09] VITALS: BP 138/76; PULSE 74; RESP 15; O2SAT 98
[2024-04-25 06:10] VITALS: O2SAT 100
[2024-04-25 06:12] VITALS: PULSE 70
[2024-04-25 06:13] LABS: Basophils Percent Auto 0.2 % (0.2-1.2); Eosinophils Absolute Auto 0.3 K/mm3 (0-0.3); Hematocrit 44.7 % (42.0-52.0); Hemoglobin 15.4 g/dL (14.0-18.0); Immature Granulocyte Absolute 0.02 K/mm3 (0.00-0.031); Immature Granulocyte Percent A 0.2 % (0-0.5); Lymphocytes Absolute Auto 3.15 K/mm3 (0.9-3.2); Lymphocytes Percent Auto 36.6 % (18.3-44.2); Mean Corpuscular HGB Conc 34.5 g/dl (32-36); Mean Corpuscular Hemoglobin 32.9 pg (26-34); Mean Corpuscular Volume 95.5 fl (80-100); Mean Platelet Volume 10.1 fl (7.4-10.4); Monocytes Absolute Auto 1.1 K/mm3 (0.1-0.6); Monocytes Percent Auto 12.5 % (2.6-8.5); Neutrophils Absolute Auto 4.1 K/mm3 (1.3-6.7); Neutrophils Percent Auto 47.5 % (45.5-73.1); Platelet Count Result 228 k/mm3 (150-375); Red Blood Count 4.68 M/mm3 (4.6-6.20); Red Cell Distribution Width 14.5 % (11.5-14.5); White Blood Count 8.6 K/mm3 (4.5-10.0)
[2024-04-25] MEDS: fentaNYL CITRATE INJ (*CRX) 100 MCG/2 ML VIAL IV PUSH (06:16)
[2024-04-25] MEDS: ASPIRIN 81 MG CHEWABLE TABLET 324 MG PO (06:17)
[2024-04-25] MEDS: HEPARIN SOD/D5W 100 UNITS/ML 25,000 UNITS/250 ML BAG 10 UNITS IV CONT (06:20)
--- NOTE | 2024-04-25 06:25 | ED.GENADULT ---
HPI - General Adult General Chief complaint: Chest Pain Stated complaint: chest pain Time Seen by Provider: 04/25/24 05:55 History of Present Illness HPI narrative: This is a 59-year-old male with history of CAD, PVD, HTN, HL presenting for chest pain. Started last night he developed tightness in the center of his chest. It is nonradiating, severe and constant. It does not feel like his prior heart attacks. There are no exacerbating alleviating factors. He does not have nausea vomiting diaphoresis. Patient does not have any fever chills or lower extremity edema. No productive cough. Related Data Home Medications Medication Instructions Recorded Confirmed atorvastatin 80 mg tablet 80 mg PO DAILY 04/24/20 04/24/20 Allergies Allergy/AdvReac Type Severity Reaction Status Date / Time No Known Allergies Allergy Verified 04/24/20 12:15 [facility] Past Medical History Medical History Coronary artery disease Hypercholesterolemia Hypertension Peripheral vascular disease Tobacco use Surgical History Surgical History Stented coronary artery Family History Family History Father Hypertension Family history of cardiovascular disease Social History Social History Smoking packs per day: 1 Smoking cigarettes per day: 20.0 Years smoked: 36 Smoking pack-years: 36.00 Smoking status: Former smoker Tobacco type: cigarettes Second hand tobacco smoke exposure: Yes Smoking end date: 10/04/19 Alcohol intake: never Alcohol use details: He drinks 1 beer daily and socially drinks occasionally Substance use: never Substance use type: does not use Living arrangements: with family Occupation/Education: occupation 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 EYES: EOMI, NOSE: Atraumatic NECK: Trachea midline RESPIRATORY: No increased rate of breathing, scattered wheezing CARDIOVASCULAR: RRR, no peripheral edema ABDOMINAL: Non-distended soft nontender MUSCULOSKELETAl: No obvious deformities NEURO: Alert. Moving 4/4 extremities SKIN:: Warm, dry. Normal color PSYCHIATRIC: Normal affect Course Vital Signs Vital signs: Vital Signs Temperature 97.8 F 04/25/24 05:52 Pulse Rate 74 04/25/24 05:52 Respiratory Rate 16 04/25/24 05:52 Blood Pressure 149/76 H 04/25/24 05:52 Pulse Oximetry 99 04/25/24 05:52 Oxygen Delivery Room Air 04/25/24 05:52 Temperature 97.8 F 04/25/24 05:52 Pulse Rate 73 04/25/24 06:30 Respiratory Rate 14 04/25/24 06:30 Blood Pressure 119/68 04/25/24 06:30 Pulse Oximetry 100 04/25/24 06:30 Oxygen Delivery Room Air 04/25/24 06:10 Medical Decision Making MDM Narrative Medical decision making narrative: -Course: 59-year-old male with significant vascular disease and history of MT presenting with chest pain. EKG showed diffuse ST elevations in the inferior and lateral leads. Case was discussed with the interventionalist on-call Dr. Dias in due to difficult anatomy he recommended transfer to a tertiary care center. [facility] transfer line was contacted. Patient was accepted by Dr. Davis in the emergency department and by Dr. Pulido from Interventional cardiology. Patient was given aspirin, fentanyl and a heparin load. Patient be transferred via air flight to [facility] for Interventional Cardiology. Independent EKG interpretation: Rhythm [sinus], Rate [72], [place] -[normal], CT -[normal], QRS [narrow], QTC [normal], T waves -[negative for concerning inversions], ST Segments -ST elevations in 2 3 AVF V4 through V6 1, ST depressions the ER Final interpretations: STEMI Vital Signs Vi
[2024-04-25 06:26] LABS: INR 1.7; Prothrombin Time 20.5 Seconds (11.1-14.7)
[2024-04-25] MEDS: HEPARIN SODIUM 5,000 UNITS/ML VIAL 4000 UNITS IV PUSH (06:26)
[2024-04-25 06:28] LABS: Partial Thromboplastin Time 38.8 Seconds (22.3-36.8)
[2024-04-25 06:30] VITALS: BP 119/68; PULSE 73; RESP 14; O2SAT 100
[2024-04-25 06:34] LABS: Alanine Aminotransferase 20 U/L (6-50); Albumin Level 4.5 g/dL (3.5-5.1); Alkaline Phosphatase 67 U/L (38-126); Anion Gap 10 mmol/L (4-12); Aspartate Amino Transferase 23 U/L (17-59); Bilirubin,Total 0.8 mg/dL (0.2-1.3); Blood Urea Nitrogen 14 mg/dL (9-20); Calcium 9.2 mg/dL (8.4-10.2); Carbon Dioxide 27 mmol/L (22-30); Chloride 102 mmol/L (98-107); Estimated CRCL calculation 82 ml/min; Estimated Glomerular Filt Rate > 60; Glucose 103 mg/dL (65-110); Lipase 88 U/L (23-300); Potassium 3.6 mmol/L (3.4-5.0); Sodium 139 mmol/L (137-145)
[2024-04-25 06:42] LABS: Troponin I < 0.012 ng/mL (0.000-0.034)
[2024-04-25 06:45] VITALS: O2SAT 98
--- NOTE | 2024-04-25 07:06 | PC.NURSE ---
Pt transported with Heparin Drip running at 10ml/hr.
== END 2024-04-25 07:07 | disposition short-term general hospital (02) ==
PROVIDERS: Emergency Provider Emergency Medicine
DX: I21.3 ST elevation (STEMI) myocardial infarction of unspecified site (principal); I25.10 Atherosclerotic heart disease of native coronary artery without angina pectoris; I10 Essential (primary) hypertension; Z87.891 Personal history of nicotine dependence
CPT/HCPCS: 36415; 71045; 80053; 83690; 84484; 85025; 85610; 85730; 93005; 96365; 96375; 99285; A9270; J1644; J3010

== ENCOUNTER 2024-10-11 08:45 | Outpatient (RCR) | payer OTHER, SELFPAY ==
[2024-06-13 15:47] VITALS: PULSE 85
== END 2024-10-11 23:59 | disposition home or self-care (01) ==
LOC: ANHCPREHAB 08:45
PROVIDERS: Visit Provider Internal Medicine Cardiovascular Disease
DX: Z95.1 Presence of aortocoronary bypass graft (principal)
CPT/HCPCS: 93798

== ENCOUNTER 2024-11-09 08:45 | Outpatient (RCR) | payer OTHER, SELFPAY ==
[2024-10-12 00:04] VITALS: PULSE 85
== END 2024-11-27 10:26 | disposition home or self-care (01) ==
LOC: ANHCPREHAB 08:45
PROVIDERS: Visit Provider Internal Medicine Cardiovascular Disease
DX: Z95.1 Presence of aortocoronary bypass graft (principal)
CPT/HCPCS: 93798